=== PATIENT | male | born 1955 | race African-American/Black ===

== ENCOUNTER 2016-09-04 14:00 | Inpatient (IN) | payer OTHER ==
--- NOTE | ~2016-09-04 | PN ---
Unit #: [id number] #: [id number] Patient: CHETAN MARTINEZ [id number] [facility] [address] [place] [address] [id number] I MR#: [id number] NAME: CHETAN MARTINEZ ROOM: P121 Age: 61 Sex: M Admission Date: 09/04/2016 : 1955 Attending Physician: Thomas Gómez M.D. Admitting Physician: Mikael Sanchez PROGRESS NOTES DATE 09/07/2016 DISCUSSION Mr. Chetan Martinez is a 61-year-old male. Patient interviewed. Chart reviewed. Obtained information from nursing staff. Patient continues to be isolative, flat affect, guarded, dressed in hospital attire. Patient is eating good. Compliant with medication but still sad, depressed, withdrawn, flat affect, guarded, attending to internal stimuli, mumbling speech. Patient still having psychotic symptoms. Complete review of system unremarkable. MENTAL STATUS EXAMINATION General appearance, patient dressed casually in hospital attire. Attention span, concentration poor. Oriented in self and place. Mood and affect labile. Speech rapid, poor articulation. Thought processes circumstantial, guarded, attending to internal stimuli. Denied any suicidal ideation but still sad, depressed, anxious, withdrawn, isolative. Recent and remote memory poor. Insight and judgement poor. DIAGNOSIS Schizophrenia, chronic paranoid type. ASSESSMENT/PLAN Advised to continue with current medications and therapeutic protocol. If needed, consider further addition of medication. Dictated by... Mikael Sanchez/eileen TD: 09/08/2016 18:38 JOB #: [id number] Unit #: [id number] #: [id number] Patient: CHETAN MARTINEZ PROGRESS NOTES Page 1 of 1 X Thomas Gómez MD PROGRESS NOTE
--- NOTE | ~2016-09-04 | PN ---
Unit #: [id number] #: [id number] Patient: CHETAN MARTINEZ [id number] [facility] [address] [place] [address] [id number] MR#: [id number] NAME: CHETAN MARTINEZ ROOM: P121 Age: 61 Sex: M Admission Date: 09/04/2016 : 1955 Attending Physician: Thomas Gómez M.D. Admitting Physician: Mikael Sanchez PROGRESS NOTES DATE 09/10/2016 DISCUSSION Chetan Martinez is a 61-year-old male seen on 09/10/2016. Patient interviewed. Chart reviewed. Obtained information from nursing staff. Patient continues to be isolative, guarded, flat affect. Hygiene and grooming poor. Attending to internal stimuli, paranoia but no aggression. Denied any thoughts of harming self or others. Pleasant, cooperative. Vital signs stable 97.9, 62, 14, 111/69. Patient was appropriate, cooperative, no aggression. Complete review of system unremarkable. MENTAL STATUS EXAMINATION General appearance, patient dressed casually in hospital attire. Attention span, concentration fair. Oriented in time, place and person. Mood and affect sad, depressed, flat. Speech monotone. Thought process concrete. Patient denied any thoughts of harming self or others but guarded, paranoid, attending to internal stimuli. Reported hearing voices but denied any command hallucinations. Otherwise, pleasant. Recent and remote memory poor. Insight and judgement poor. DIAGNOSIS Schizophrenia, chronic paranoid type. ASSESSMENT/PLAN Advised to continue with current medication and therapeutic protocol. If needed, consider further adjustment of medication. Dictated by... Mikael Sanchez/eileen TD: 09/11/2016 20:01 JOB #: [id number] Unit #: [id number] #: [id number] Patient: CHETAN MARTINEZ PROGRESS NOTES Page 1 of 1 X Thomas Gómez MD PROGRESS NOTE
--- NOTE | ~2016-09-04 | PN ---
Unit #: [id number] #: [id number] Patient: CHETAN MARTINEZ [id number] [facility] [address] [place] [address] [id number] I MR#: [id number] NAME: CHETAN MARTINEZ ROOM: P121 Age: 61 Sex: M Admission Date: 09/04/2016 : 1955 Attending Physician: Thomas Gómez M.D. Admitting Physician: Mikael Sanchez PROGRESS NOTES DATE 09/13/2016 DISCUSSION Chetan Martinez is a 61-year-old male seen on 09/13/2016. The patient interviewed, chart reviewed. Obtained information from nursing staff. The patient dressed in hospital attire, seclusive, isolative, flat affect, sad, dysphoric, guarded, paranoid but no aggressive behavior. Tolerating medication fairly well no side effects from medication. Complete review of systems unremarkable. MENTAL STATUS EXAMINATION General appearance, the patient dressed in hospital attire, withdrawn, isolative. Mood and affect sad, dysphoric. Attention span and concentration poor. Oriented to time, place and person. Speech slow. Thought process circumstantial, guarded, paranoid but denied any thoughts of harming self or others. Recent and remote memory poor. Insight and judgement poor. DIAGNOSES Schizophrenia chronic paranoid type. ASSESSMENT/PLAN Advise to continue with current medication and therapeutic protocol. If needed consider further adjustment of medication. Dictated by... Mikael Sanchez/deepika TD: 09/14/2016 23:44 JOB #: [id number] Unit #: [id number] #: [id number] Patient: CHETAN MARTINEZLEONARDO PROGRESS NOTES Page 1 of 1 X Thomas Gómez MD PROGRESS NOTE
--- NOTE | ~2016-09-04 | PN ---
Unit #: [id number] #: [id number] Patient: CHETAN MARTINEZ [id number] [facility] [address] [place] [address] [id number] I MR#: [id number] NAME: CHETAN MARTINEZ ROOM: P121 Age: 61 Sex: M Admission Date: 09/04/2016 : 1955 Attending Physician: Thomas Gómez M.D. Admitting Physician: Mikael Sanchez PROGRESS NOTES DATE OF SERVICE: 09/11/2016 DISCUSSION Mr. Chetan Martinez is a 61-year-old male, seen on 09/11/2016. The patient isolative, guarded, and flat affect. Vital signs; temperature 98.6, heart rate 57, respiratory rate 14, and blood pressure 169/49. The patient still guarded, paranoid, attending to internal stimuli, but no aggressive behavior. Denied any complaints. REVIEW OF SYSTEMS Complete review of systems unremarkable. MENTAL STATUS EXAMINATION General appearance, the patient dressed in hospital attire. Attention span and concentration, poor. Oriented in place and person. Mood and affect, sad and depressed. Speech, monotone. Thought process, concrete. The patient denied any hallucination, but guarded, paranoid, and attending to internal stimuli. Recent and remote memory, poor. Insight and judgment, poor. DIAGNOSIS Schizophrenia, chronic paranoid type. ASSESSMENT AND PLAN Advised to continue with current medication and therapeutic protocol. If needed, consider further adjustment of medication. Dictated by... Mikael Sanchez/jamaal TD: 09/12/2016 18:31 JOB #: [id number] Unit #: [id number] #: [id number] Patient: CHETAN MARTINEZ SIS PROGRESS NOTES Page 1 of 1 X Thomas Gómez MD PROGRESS NOTE
--- NOTE | ~2016-09-04 | PN ---
Unit #: [id number] #: [id number] Patient: CHETAN MARTINEZ [id number] [facility] [address] [place] [address] [id number] I MR#: [id number] NAME: CHETAN MARTINEZ ROOM: P121 Age: 61 Sex: M Admission Date: 09/04/2016 : 1955 Attending Physician: Thomas Gómez M.D. Admitting Physician: Mikael Sanchez NOTES DATE OF SERVICE: 09/14/2016 DISCUSSION Chetan Martinez is a 61-year-old male, seen on 09/14/2016. The patient interviewed, chart reviewed, and obtained information from nursing staff. The patient dressed in hospital attire, seclusive, isolative, guarded, flat affect. The patient reports that hallucinations are getting better. Denied any suicidal ideation, but still seclusive, isolative, guarded, paranoid, but no aggression. The patient denied any thoughts of harming self or others. Affect, sad and dysphoric, flat, isolative, able to participate in programming. Complete review of systems unremarkable. MENTAL STATUS EXAMINATION General appearance, the patient dressed in hospital attire. Attention span and concentration, fair. Oriented in place and person. Mood and affect, sad and dysphoric. Speech, monotone. Thought process, concrete. The patient denied any thoughts of harming self or others, but guarded, withdrawn, and seclusive, attending to internal stimuli. Recent and remote memory, poor. Insight and judgment, poor. DIAGNOSIS Schizophrenia, chronic, paranoid type. ASSESSMENT AND PLAN Advised to continue with current medication and therapeutic protocol. If needed, consider further adjustment of medication. Dictated by... Mikael Sanchez/jamaal TD: 09/15/2016 17:19 JOB #: [id number] Unit #: [id number] #: [id number] Patient: CHETAN MARTINEZ SIS PROGRESS NOTES Page 1 of 1 X Thomas Gómez MD X PROGRESS NOTE
--- NOTE | ~2016-09-04 | DS ---
Unit #: [id number] #: [id number] Patient: CHETAN MARTINEZ [id number] [facility] [address] [place] [address] [id number] I MR#: [id number] NAME: CHETAN MARTINEZ ROOM: [facility] Age: 61 Sex: M Admission Date: 09/04/2016 : 1955 Discharge Date: 09/16/2016 Attending Physician: Thomas Gómez M.D. DISCHARGE SUMMARY REASON FOR ADMISSION Hallucination. DIAGNOSTIC STUDIES LABORATORY RESULTS: Unremarkable. HOSPITAL COURSE The patient was admitted to inpatient unit on 09/04/2016 and discharged on 09/16/2016. The patient was treated on the inpatient unit with group therapy, individual therapy, medication management, responded well with the above modalities of treatment. Subsequently, the patient was discharged with a plan to follow up in outpatient program. DISCHARGE MEDICATIONS Zyprexa 20 mg at bedtime for psychosis, Inderal 20 mg t.i.d. for hypertension, Cogentin 1 mg b.i.d. for EPS symptom. DISCHARGE DIAGNOSIS Psychiatric: Schizophrenia, chronic, paranoid type, F20.0. Secondary diagnosis: Deferred. Medical diagnosis: None. Stressors: Psychosocial stressors. DISCHARGE INSTRUCTIONS The patient to follow up in outpatient clinic as per child welfare social worker. CONDITION ON DISCHARGE The patient was pleasant and cooperative. Denied any psychotic symptom or any suicidal ideation. PROGNOSIS Guarded. DIET AND ACTIVITY As tolerated. Dictated by... Thomas Gómez M.D. Unit #: [id number] #: [id number] Patient: CHETAN MARTINEZ SZC/modl TD: 09/16/2016 21:07 JOB #: [id number] DISCHARGE SUMMARY Page 1 of 1 X Thomas Gómez MD DISCHARGE SUMMARY
--- NOTE | ~2016-09-04 | PN ---
Unit #: [id number] #: [id number] Patient: CHETAN MARTINEZ [id number] [facility] [address] [place] [address] [id number] I MR#: [id number] NAME: CHETAN MARTINEZ ROOM: P121 Age: 61 Sex: M Admission Date: 09/04/2016 : 1955 Attending Physician: Thomas Gómez M.D. Admitting Physician: Mikael Sanchez PROGRESS NOTES DATE 09/06/2016 DISCUSSION Mr. Dudley is a 61-year-old male seen on 09/06/2016. The patient's hygiene and grooming poor, flat affect, withdrawn, isolative, guarded. The patient was able to eat good, sleep good, med compliant, no aggressive behavior. The patient still somewhat guarded, paranoid, isolative, guarded. The patient reports overall feeling better, making progress. Decreased in psychotic symptoms. Complete review of systems unremarkable. MENTAL STATUS EXAMINATION General appearance, the patient dressed casually. Attention span and concentration poor. Oriented to place and person. Mood and affect labile. Speech monotone. Thought process concrete. The patient denied any thoughts of harming self or others but guarded. Recent and remote memory poor. Insight and judgement poor. DIAGNOSES Schizophrenia chronic paranoid type. ASSESSMENT/PLAN Advise to continue with current medication and therapeutic protocol. If needed consider further adjustment of medication. Dictated by... Mikael Sanchez/deepika TD: 09/07/2016 21:54 JOB #: [id number] Unit #: [id number] #: [id number] Patient: CHETAN MARTINEZ PROGRESS NOTES Page 1 of 1 X Thomas Gómez MD PROGRESS NOTE
--- NOTE | ~2016-09-04 | PN ---
Unit #: [id number] #: [id number] Patient: CHETAN MARTINEZ [id number] [facility] [address] [place] [address] [id number] I MR#: [id number] NAME: CHETAN MARTINEZ ROOM: P121 Age: 61 Sex: M Admission Date: 09/04/2016 : 1955 Attending Physician: Thomas Gómez M.D. Admitting Physician: Mikael Sanchez PROGRESS NOTES DATE OF SERVICE: 09/08/2016 DISCUSSION Chetan is a 61-year-old male, seen on 09/08/2016. The patient interviewed, chart reviewed, and obtained information from nursing staff. The patient compliant and cooperative. Mood is sad, dysphoric, withdrawn, isolative, guarded, still attending to internal stimuli, paranoid, isolative, poor hygiene, but eating good. Compliant with medication. No side effects from medication. REVIEW OF SYSTEMS Complete review of systems unremarkable. MENTAL STATUS EXAMINATION General appearance, the patient dressed in hospital attire. Attention span and concentration, fair. Oriented in place and person. Mood and affect; sad, depressed, flat, withdrawn, and isolative. Speech, monotone. Thought process, concrete. The patient denied any thoughts of harming self or others, but withdrawn, isolative, paranoid, and attending to internal stimuli. Recent and remote memory, poor. Insight and judgment, poor. DIAGNOSIS Schizophrenia, chronic paranoid type. ASSESSMENT AND PLAN Advised to continue with current medication and therapeutic protocol. If needed, consider further adjustment of medication. Dictated by... Mikael Sanchez/jamaal TD: 09/10/2016 18:25 JOB #: [id number] Unit #: [id number] #: [id number] Patient: CHETAN MARTINEZ SIS DRAKE NOTES Page 1 of 1 X Thomas Gómez MD PROGRESS NOTE
--- NOTE | ~2016-09-04 | PN ---
Unit #: [id number] #: [id number] Patient: CHETAN MARTINEZ [id number] [facility] [address] [place] [address] [id number] I MR#: [id number] NAME: CHETAN MARTINEZ ROOM: P121 Age: 61 Sex: M Admission Date: 09/04/2016 : 1955 Attending Physician: Thomas Gómez M.D. Admitting Physician: Mikael Sanchez PROGRESS NOTES DATE 09/15/2016 DISCUSSION Chetan Martinez is a 61-year-old male, seen on 09/15/2016. The patient interviewed, chart reviewed, and obtained information from the nursing staff. The patient was compliant and cooperative, tolerating medication fairly well. The patient reports making progress but still somewhat paranoid, isolative, guarded, but no thoughts of harming self or others. The patient was cooperative. 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 REVIEW OF SYSTEMS Complete review of systems unremarkable. MENTAL STATUS EXAMINATION General appearance: Patient dressed in hospital attire. Attention span and concentration, fair. Oriented to place and person. Mood and affect, labile. Speech, monotone. Thought process, concrete. The patient denied any thoughts of harming self or others but guarded, paranoid, seclusive, isolative, guarded. Recent and remote memory, poor. Insight and judgment, poor. DIAGNOSIS Schizophrenia, chronic paranoid type. ASSESSMENT/PLAN Advised to continue with the current medication and therapeutic protocol, and if needed consider further adjustment of medication. Dictated by... Mikael Sanchez/vijay TD: 09/16/2016 11:27 JOB #: [id number] Unit #: [id number] #: [id number] Patient: CHETAN MARTINEZ SIS PROGRESS NOTES Page 1 of 1 X Thomas Gómez MD PROGRESS NOTE
--- NOTE | ~2016-09-04 | HP ---
Unit #: [id number] #: [id number] Patient: CHETAN MARTINEZ [id number] [place] [address] [id number] I MR#: [id number] NAME: CHETAN MARTINEZ ROOM: P121 Age: 61 Sex: M Admission Date: 09/04/2016 : 1955 Attending Physician: Thmoas Gómez M.D. Admitting Physician: Thomas Gómez M.D. HISTORY AND PHYSICAL HISTORY OF PRESENT ILLNESS Chetan is a 61-year-old male admitted on 09/04/[address] [place] [address] for psychosis. PAST MEDICAL HISTORY Prostate cancer PAST SURGICAL HISTORY Prostatectomy in 2016. SOCIAL HISTORY Smokes 1 1/2 packs of cigarettes daily. Drinks four cans of beer daily and occasional use of crack cocaine. He is currently single and living with his sister. FAMILY HISTORY Noncontributory. REVIEW OF SYSTEMS CONSTITUTIONAL: No fever or chills. HEENT: Denies any sore throat, ear pain or runny nose. CARDIOVASCULAR: Denies chest pain, irregular heart rhythm or palpitations. CHEST: Denies shortness of breath or cough. No hemoptysis. GASTROINTESTINAL: Denies nausea, vomiting, diarrhea or chronic constipation. ENDOCRINE: Denies history of increased thirst or urination. No recent significant weight loss or gain. GENITOURINARY: Denies dysuria, frequency, or hematuria. SKIN: Denies any rashes. HEMATOLOGIC: Denies history of increased bleeding or bruising. MUSCULOSKELETAL: Denies any hot, swollen joints. No generalized muscle pain. NEUROLOGIC: Denies problems with vision or speech. No frequent, severe headaches. No numbness, tingling or weakness in any extremities. Denies loss of bladder or bowel control. CURRENT MEDICATIONS Zyprexa, Inderal, Cogentin. ALLERGIES No known drug allergies. Unit #: [id number] #: [id number] Patient: CHETAN MARTINEZ PHYSICAL EXAMINATION GENERAL: Alert, oriented, in no acute distress. VITAL SIGNS: Blood pressure (1) , respirations 18. HEIGHT: 5 foot 8 inches. WEIGHT: 126 pounds. SKIN: Warm and dry without rash or lesion. HEENT: Normocephalic. TMs not viewed. Oral and nasal passages clear. Conjunctivae clear. PERRLA. EOMs intact. NECK: Supple without lymphadenopathy or thyromegaly. HEART: Regular rate and rhythm without murmur. LUNGS: Clear. ABDOMEN: Soft, nontender, without masses or hepatosplenomegaly. : Not done. EXTREMITIES: No evidence of cyanosis, clubbing or edema. Moves all without focal deficit. NEUROLOGICAL: Grossly within normal limits. Cranial Nerves: II: Visual lowry are intact. III, IV AND : Extraocular movements are intact. Pupils are equal, round and reactive to light. V: Facial sensation is grossly normal. VII: Facial movements and expression are normal. VIII: Auditory acuity grossly intact. IX, X: Uvula is midline. Phonation is normal. XI: Patient shrugs shoulders and turns head normally. XII: Tongue protrudes in the midline. Sensory and Motor Function: Sensory and motor sensation is grossly normal. Motor: moves all extremities well. Coordination: Gait is normal. Deep Tendon Reflexes: Intact. IMPRESSION 1. Psychiatric admission. 2. History of prostate cancer. RECOMMENDATIONS Psychiatric, per psychiatrist. MEDICAL: I see no contraindications to participating in facility's activities. MEDICAL PROGNOSIS Good. MEDICAL CONDITION Stable. Dictated by... Mercedes Cedeño/deepika TD: 09/06/2016 04:12 JOB #: [id number] Unit #: [id number] #: [id number] Patient: CHETAN MARTINEZ HISTORY AND PHYSICAL Page 1 of 1 X GAMA NEAL APRN X HISTORY AND PHYSICAL
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
--- NOTE | ~2016-09-04 | PN ---
Unit #: [id number] #: [id number] Patient: CHETAN CHARLES [id number] [facility] [address] [place] [address] [id number] MR#: [id number] NAME: CHETAN CHARLES ROOM: P121 Age: 61 Sex: M Admission Date: 09/04/2016 : 1955 Attending Physician: Thomas Gómez M.D. Admitting Physician: Mikael Sanchez NOTES DATE OF SERVICE: 09/12/2016 DISCUSSION Chetan Charles is a 61-year-old male, seen on 09/12/2016. The patient interviewed, chart reviewed, and obtained information from nursing staff. The patient's vital signs stable; temperature 97.6, heart rate 65, respiratory rate 14, and blood pressure 100/64. The patient was withdrawn, isolative, flat affect, and guarded, but able to maintain safe behavior. Compliant with medication, but still attending to internal stimuli and paranoid. REVIEW OF SYSTEMS Complete review of systems unremarkable. MENTAL STATUS EXAMINATION General appearance, the patient dressed in hospital attire. Attention span and concentration, poor. Oriented in place and person. Mood and affect; sad, dysphoric, and flat. Speech, monotone. Thought process, concrete. The patient denied any thoughts of harming self or others, but still having psychotic symptom as mentioned above, isolative, guarded, and paranoid. Recent and remote memory, poor. Insight and judgment, poor. DIAGNOSIS Schizophrenia, chronic paranoid type. ASSESSMENT AND PLAN Advised to continue with current medication and therapeutic protocol. If needed, consider further adjustment of medication. Dictated by... Mikael Sanchez/jamaal TD: 09/12/2016 13:10 JOB #: [id number] Unit #: [id number] #: [id number] Patient: CHETAN CHARELS SIS DRAKE NOTES Page 1 of 1 X Thomas Gómez MD PROGRESS NOTE
--- NOTE | ~2016-09-04 | PN ---
Unit #: [id number] #: [id number] Patient: LUIS ENRIQUE MARTINEZ [id number] [facility] [address] [place] [address] [id number] MR#: [id number] NAME: LUIS ENRIQUE MARTINEZ ROOM: P121 Age: 61 Sex: M Admission Date: 09/04/2016 : 1955 Attending Physician: Thomas Gómez M.D. Admitting Physician: Mikael Sanchez PROGRESS NOTES DATE OF SERVICE: 09/09/2016 DISCUSSION Luis Enrique Martinez is a 61-year-old male, seen on 09/09/2016. The patient interviewed, chart reviewed, and obtained information from nursing staff. The patient compliant with medication, pleasant, and cooperative during interview. He reports that his paranoia is getting better. Still isolative, guarded, and flat affect. The patient's pediatric social worker sent referrals for possible placement with their facility, [facility]. The patient's vital signs stable; temperature 98.6, heart rate 68, respiratory rate 13, and blood pressure 87/62. The patient is still isolative, guarded, flat affect, attending to internal stimuli, and paranoid. The patient, however, denied any thoughts of harming self or others. Maintained positive behavior, but still self-talk. REVIEW OF SYSTEMS Complete review of systems unremarkable. MENTAL STATUS EXAMINATION General appearance, the patient dressed casually in hospital attire. Attention span and concentration is poor. Orientation in self and place. Mood and affect, labile. Speech, rapid and poor articulation. Thought process, circumstantial. The patient denied any thoughts of harming self or others, but guarded, paranoid, delusional, and isolative. Recent and remote memory, poor. Insight and judgment, poor. DIAGNOSIS Schizophrenia, chronic paranoid type. ASSESSMENT AND PLAN Advised to continue with current medication and therapeutic protocol. If needed, consider further adjustment of medication. Dictated by... Mikael Sanchez/modl TD: 09/09/2016 16:25 JOB #: [id number] Unit #: [id number] #: [id number] Patient: LUIS ENRIQUE MARTINEZ PROGRESS NOTES Page 1 of 1 X Thomas Gómez MD PROGRESS NOTE
--- NOTE | ~2016-09-04 | CO ---
Unit #: [id number] #: [id number] Patient: CHETAN MARTINEZ [id number] [place] [address] [id number] MR#: [id number] NAME: CHETAN MARTINEZ ROOM: [facility] Age: 61 Sex: M Admission Date: 09/04/2016 : 1955 Attending Physician: Thomas Gómez M.D. Consultation Date: 09/05/2016 CONSULTATION REPORT HISTORY OF PRESENT ILLNESS Chetan complains calluses on his right and left little toe and his left middle toe are becoming painful. He reports that he wears tennis shoes everyday, but they are old and do not fit him well. No odor. No itching. No redness. No swelling. No other complaints. PHYSICAL EXAMINATION CARDIAC: Regular rate and rhythm. No murmurs, gallops, or rubs. RESPIRATORY: Clear to auscultation bilaterally. SKIN: Bilateral calluses on toes that are hard and dry. ASSESSMENT AND PLAN Calluses. We will begin Epsom salt baths b.i.d. At this time, there are no signs or symptoms . Dictated by... Mya CedeñoRRhina. for Mikael Gaines/jamaal TD: 09/06/2016 00:59 JOB #: [id number] CONSULTATION REPORT Page 1 of 1 X GAMA NEAL APRN X CONSULTATION REPORT
--- NOTE | ~2016-09-04 | PN ---
Unit #: [id number] #: [id number] Patient: CHETAN MARTINEZ [id number] [facility] [address] [place] [address] [id number] I MR#: [id number] NAME: CHETAN MARTINEZ ROOM: P121 Age: 61 Sex: M Admission Date: 09/04/2016 : 1955 Attending Physician: Thomas Gómez M.D. Admitting Physician: Mikael Sanchez PROGRESS NOTES DATE 09/05/2016 DISCUSSION Mr. Chetan Martinez is a 61-year-old male. The patient interviewed, chart reviewed. Obtained information from nursing staff. The patient compliant and cooperative. Mood sad, dysphoric, flat affect guarded. The patient tolerating medication fairly well but still guarded, isolative, flat affect. Complete review of systems unremarkable. MENTAL STATUS EXAMINATION General appearance, the patient dressed casually. Attention span and concentration fair. Oriented to time, place and person. Mood and affect sad, dysphoric, flat, guarded, paranoid attending to internal stimuli. Recent and remote memory poor. Insight and judgement poor. DIAGNOSES Schizophrenia chronic paranoid type ASSESSMENT/PLAN Advise to continue with current medication and therapeutic protocol. If needed consider further adjustment of medication. Dictated by... Mikael Sanchez/deepika TD: 09/07/2016 00:42 JOB #: [id number] [facility] PROGRESS NOTES Page 1 of 1 X Thomas Gómez MD PROGRESS NOTE
[2016-09-05 11:29] LABS: BASOPHIL# 0.1 X10e3 (0-0.3); EOSINOPHIL# 0.4 X10e3 (0-0.7); EOSINOPHIL% 6.1 % (0.0-7.0); HEMATOCRIT 38.9 % (38.0-50.0); LYMPHOCYTE# 2.4 X10e3 (1.0-3.5); LYMPHOCYTE% 35.9 % (17.0-45.0); MEAN CORPUSCULAR HEMOGLOBIN 32.7 PG (28-34); MEAN CORPUSCULAR HGB CONC 33.4 g/dL (30-36); MEAN PLATELET VOLUME 7.4 FL (6.5-11.5); MONOCYTE# 0.6 X10e3 (0-1.0); MONOCYTE% 9.1 % (3.0-12.0); NEUTROPHIL# 3.2 X10e3 (1.5-7.1); NEUTROPHIL% 47.9 % (40-75); PLATELET COUNT 251 X10e3 (140-420); RED BLOOD COUNT 3.97 X10e (3.90-5.60); RED CELL DISTRIBUTION WIDTH 13.7 % (11.0-15.5); WHITE BLOOD COUNT 6.7 X10e3 (4.0-10.5)
[2016-09-05 11:37] LABS: DIFF IND NO
[2016-09-05 11:51] LABS: ALBUMIN SERUM 3.9 g/dL (3.5-5.0); BILIRUBIN,TOTAL 1.2 mg/dL (0.2-2.0); BUN/CREATININE RATIO 17.5; CALCIUM SERUM 9.5 mg/dL (8.4-10.2); CREATININE SERUM 0.8 mg/dL (0.6-1.4); GLOM FILT RATE Estimated 113.4 mL/min (>60); PROTEIN TOTAL SERUM 6.6 g/dL (6.0-8.3)
== END 2016-09-16 15:46 | disposition home or self-care (01) | DRG 885 ==
LOC: P1S 18:48
PROVIDERS: Psychiatry & Neurology Psychiatry
DX: F20.0 Paranoid schizophrenia (principal); F17.210 Nicotine dependence, cigarettes, uncomplicated; L84 Corns and callosities
CPT/HCPCS: 80053; 85025